=== PATIENT | female | born 2000 | race Two or more races ===

== ENCOUNTER 2022-05-28 17:38 | Observation (INO) | payer MEDICAID ==
[~2022-05-28] VITALS: Ht 152.4 cm; Wt 64.9 kg
[2022-05-28] MEDS ORDERED: LACTATED RINGER'S 1,000 ML IV ONE (18:15)
[2022-05-28] MEDS ORDERED: NIFEdipine 10 MG CAP PO ONE (18:15)
[2022-05-28] MEDS ORDERED: ceFAZolin 1GM/50ML 50 ML IV ONE (18:15)
[2022-05-28] MEDS ORDERED: TERBUTALINE SULFATE 1 MG/ML 1ML VIAL SC SCH (18:15)
[2022-05-28] MEDS ORDERED: ACETAMINOPHEN 325 MG TAB PO ONE (18:15)
[2022-05-28 19:04] LABS: Urine Bacteria FEW /hpf (None Seen); Urine Blood Negative /uL (Negative); Urine Specific Gravity 1.007 (1.001-1.035); Urine WBC 1 /hpf (0 - 5)
[2022-05-29] MEDS: ACETAMINOPHEN 325 MG TAB PO PRN ×3 (00:21→09:10)
[2022-05-29] MEDS ORDERED: LACTATED RINGER'S 1,000 ML IV SCH (01:15)
[2022-05-29] MEDS ORDERED: cefTRIAXone 1GM/50ML D5W 50 ML IV ONE (01:45)
[2022-05-29] MEDS ORDERED: SODIUM CHLORIDE 0.9% 1,000 ML IV SCH (01:45)
[2022-05-29] MEDS: ceFAZolin 1GM/50ML 50 ML IV SCH ×2 (02:51→11:15)
[2022-05-29 02:53] LABS: Basophils # (auto) 0 10 ^3/uL (0-0.2); Basophils % (auto) 0.2 % (0.0-2.0); Eosinophils # (auto) 0 10 ^3/uL (0-0.8); Eosinophils % (auto) 0.1 % (0.0-7.0); Hematocrit 30.7 % (36.0-46.0); Hemoglobin 10.4 g/dL (12.2-16.2); Lymphocytes # (auto) 0.4 10 ^3/uL (0.4-5.4); Mean Corpuscular Hemoglobin 30.5 pg (28.0-32.0); Mean Corpuscular Volume 89.5 fL (80.0-100.0); Monocytes # (auto) 0.5 10 ^3/uL (0-1.3); Monocytes % (auto) 6.7 % (0.0-12.0); Neutrophils # (auto) 5.9 10 ^3/uL (1.6-8.6); Red Blood Cells 3.42 10^6/uL (4.0-5.20); Red Cell Distribution Width 12.5 % (11.8-14.3); White Blood Cell 6.8 10^3/uL (4.4-10.8)
[2022-05-29 03:00] LABS: INR 0.94 (0.9-1.15); Partial Thromboplastin Time 34.5 sec (24.6-33.4)
[2022-05-29 03:04] LABS: Albumin 2.5 g/dL (3.4-5.0); BUN/Creatinine Ratio 11.4; Calcium 8.5 mg/dL (8.5-10.1); Potassium 3.3 mmol/L (3.5-5.1)
[2022-05-29 03:07] LABS: Bilirubin, Total 0.6 mg/dL (0.2-1.0); Total Protein 6.1 g/dL (6.4-8.2)
[2022-05-29] MEDS ORDERED: AZITTAB PO ×2 (12:23)
[2022-05-29 22:35] LABS: Alcohol, Urine < 3.0 mg/dL (0-10); Amphetamine Screen, Urine NEGATIVE (NEGATIVE); Barbiturate Scree,Urine NEGATIVE (NEGATIVE); Benzodiazephine Screen, Urine NEGATIVE (NEGATIVE); Cannabinoid Screen, Urine NEGATIVE (NEGATIVE); Cocaine Screen, Urine NEGATIVE (NEGATIVE); Opiate Scree,Urine NEGATIVE (NEGATIVE); Phencyclidine Screen, Urine NEGATIVE (NEGATIVE)
== END 2022-05-29 13:02 | disposition home or self-care (01) ==
LOC: LDRP 17:38
PROVIDERS: ADMIT Obstetrics & Gynecology; ATTEND Obstetrics & Gynecology
DX: O98.512 Other viral diseases complicating pregnancy, second trimester (principal); Z20.822 Contact with and (suspected) exposure to COVID-19; B34.9 Viral infection, unspecified; O26.892 Other specified pregnancy related conditions, second trimester; R50.9 Fever, unspecified; R00.0 Tachycardia, unspecified; O62.9 Abnormality of forces of labor, unspecified; Z3A.24 24 weeks gestation of pregnancy; Z79.899 Other long term (current) drug therapy
CPT/HCPCS: 36415; 59025; 76805; 80053; 80307; 81001; 81002; 85025; 85610; 85730; 87040; 87426; 87804; 94760; 96365; 96366; 96367; 96368; G0378; J0690; J0696; J7030; U0003; 96360; 96361

== ENCOUNTER 2022-06-01 12:15 | Observation (INO) | payer MEDICAID ==
[~2022-06-01 12:15] MED LIST: AZITTAB PO
[2022-06-01] MEDS ORDERED: PREN-96 PO ×2 (16:02)
== END 2022-06-01 16:19 | disposition home or self-care (01) ==
LOC: LDRP 12:15 → UNDOADMOB 12:15 → LDRP 14:54
PROVIDERS: ADMIT Obstetrics & Gynecology Obstetrics; ATTEND Obstetrics & Gynecology Obstetrics
DX: O60.02 Preterm labor without delivery, second trimester (principal); Z3A.25 25 weeks gestation of pregnancy
CPT/HCPCS: 59025; 81002; G0378

== ENCOUNTER 2022-06-17 09:23 | Observation (INO) | payer MEDICAID ==
[~2022-06-17] VITALS: Ht 152.4 cm; Wt 63.5 kg
[~2022-06-17 09:23] MED LIST changes: -AZITTAB PO; +NIFE10CA3 PO; +PREN-96 PO
[2022-06-17] MEDS ORDERED: TERBUTALINE SULFATE 1 MG/ML 1ML VIAL SC SCH (10:15)
[2022-06-17] MEDS ORDERED: NIFEdipine 10 MG CAP PO ONE (10:15)
== END 2022-06-17 11:03 | disposition home or self-care (01) ==
LOC: LDRP 09:23 → UNDOADMOB 09:23 → LDRP 09:27 → UNDODISOB 11:03
PROVIDERS: ADMIT Obstetrics & Gynecology; ATTEND Obstetrics & Gynecology
DX: O60.02 Preterm labor without delivery, second trimester (principal); Z3A.27 27 weeks gestation of pregnancy
CPT/HCPCS: 59025; 81002; 94760; 96372; G0378; J3105

== ENCOUNTER 2022-06-24 08:43 | Observation (INO) | payer MEDICAID ==
[~2022-06-24] VITALS: Ht 152.4 cm; Wt 68.0 kg
[2022-06-24] MEDS ORDERED: BETAMETHASONE ACET (30mg/5ml) 5ml Vial 6mg/ml IM ONE (09:15)
[2022-06-24] MEDS ORDERED: TERBUTALINE SULFATE 1 MG/ML 1ML VIAL SC ONE (09:19)
[2022-06-24] MEDS ORDERED: BETAMETHASONE ACET (30mg/5ml) 5ml Vial 6mg/ml ONE (09:19)
[2022-06-24] MEDS: TERBUTALINE SULFATE 1 MG/ML 1ML VIAL SC SCH ×2 (09:22→09:35)
== END 2022-06-24 10:10 | disposition home or self-care (01) ==
LOC: UNDOADMOB 08:43 → LDRP 08:43
PROVIDERS: ADMIT Obstetrics & Gynecology; ATTEND Obstetrics & Gynecology
DX: O60.03 Preterm labor without delivery, third trimester (principal); Z3A.28 28 weeks gestation of pregnancy; Z79.899 Other long term (current) drug therapy
CPT/HCPCS: 59025; 81002; 82948; 94760; 96372; G0378; J0702; J3105

== ENCOUNTER 2022-06-25 11:27 | Observation (INO) | payer MEDICAID ==
[~2022-06-25] VITALS: Ht 33 cm; Wt 0.5 kg
[2022-06-25] MEDS ORDERED: BETAMETHASONE ACET (30mg/5ml) 5ml Vial 6mg/ml IM ONE (11:45)
== END 2022-06-25 13:07 | disposition home or self-care (01) ==
LOC: LDRP 11:27 → UNDOADMOB 11:27 → LDRP 11:36 → UNDODISOB 13:07
PROVIDERS: ADMIT Obstetrics & Gynecology; ATTEND Obstetrics & Gynecology
DX: O60.03 Preterm labor without delivery, third trimester (principal); Z3A.28 28 weeks gestation of pregnancy
CPT/HCPCS: 59025; 81002; 94760; 96372; G0378; J0702

== ENCOUNTER 2022-07-07 10:26 | Observation (INO) | payer MEDICAID ==
[~2022-07-07] VITALS: Ht 60 cm; Wt 68.5 kg
[2022-07-07] MEDS ORDERED: TERBUTALINE SULFATE 1 MG/ML 1ML VIAL SC SCH (11:15)
== END 2022-07-07 11:56 | disposition home or self-care (01) ==
LOC: UNDOADMOB 10:26 → LDRP 10:26 → UNDODISOB 11:56
PROVIDERS: ADMIT Obstetrics & Gynecology; ATTEND Obstetrics & Gynecology
DX: O60.03 Preterm labor without delivery, third trimester (principal); Z3A.30 30 weeks gestation of pregnancy
CPT/HCPCS: 59025; 81002; 94760; 96372; G0378; J3105

== ENCOUNTER 2022-07-14 08:12 | Observation (INO) | payer MEDICAID ==
[~2022-07-14] VITALS: Ht 152.4 cm; Wt 69.4 kg
[2022-07-14] MEDS ORDERED: TERBUTALINE SULFATE 1 MG/ML 1ML VIAL SC SCH (11:45)
[2022-07-14] MEDS ORDERED: TERBUTALINE SULFATE 1 MG/ML 1ML VIAL SC ONE (11:54)
== END 2022-07-14 12:50 | disposition home or self-care (01) ==
LOC: LDRP 10:40 → UNDOADMOB 10:40 → LDRP 11:15
PROVIDERS: ADMIT Obstetrics & Gynecology; ATTEND Obstetrics & Gynecology
DX: O60.03 Preterm labor without delivery, third trimester (principal); O24.419 Gestational diabetes mellitus in pregnancy, unspecified control; Z3A.31 31 weeks gestation of pregnancy
CPT/HCPCS: 59025; 81002; 94760; 96372; G0378; J3105

== ENCOUNTER 2022-07-22 08:09 | Observation (INO) | payer MEDICAID ==
[~2022-07-22] VITALS: Ht 152.4 cm; Wt 61.2 kg
[2022-07-22] MEDS ORDERED: TERBUTALINE SULFATE 1 MG/ML 1ML VIAL SC SCH (09:30)
[2022-07-22] MEDS ORDERED: NIF10C PO (10:35)
== END 2022-07-22 11:39 | disposition home or self-care (01) ==
LOC: UNDOADMOB 08:50 → LDRP 08:50
PROVIDERS: ADMIT Obstetrics & Gynecology; ATTEND Obstetrics & Gynecology
DX: O60.03 Preterm labor without delivery, third trimester (principal); O62.9 Abnormality of forces of labor, unspecified; Z3A.32 32 weeks gestation of pregnancy
CPT/HCPCS: 59025; 81002; 93971; 94760; 96372; G0378; J3105

== ENCOUNTER 2022-07-28 07:43 | Observation (INO) | payer MEDICAID ==
[~2022-07-28 07:43] MED LIST changes: +NIF10C PO; -NIFE10CA3 PO
== END 2022-07-28 08:26 | disposition home or self-care (01) ==
LOC: LDRP 07:43 → UNDOADMOB 07:43 → LDRP 07:47 → UNDODISOB 08:26
PROVIDERS: ADMIT Obstetrics & Gynecology; ATTEND Obstetrics & Gynecology
DX: O60.03 Preterm labor without delivery, third trimester (principal); Z3A.33 33 weeks gestation of pregnancy
CPT/HCPCS: 59025; 81002; 94760; G0378

== ENCOUNTER 2022-08-04 09:33 | Observation (INO) | payer MEDICAID | END 2022-08-04 10:28 | disposition home or self-care (01) | LOC: LDRP 09:33 → UNDOADMOB 09:33 → LDRP 09:37 → UNDODISOB 10:28 | PROVIDERS: ADMIT Obstetrics & Gynecology; ATTEND Obstetrics & Gynecology | DX: O60.03 Preterm labor without delivery, third trimester (principal); Z3A.34 34 weeks gestation of pregnancy | CPT/HCPCS: 59025; 81002; 94760; G0378 ==

== ENCOUNTER 2022-08-12 08:02 | Observation (INO) | payer MEDICAID ==
[~2022-08-12] VITALS: Ht 154.9 cm; Wt 57.6 kg
== END 2022-08-12 08:58 | disposition home or self-care (01) ==
LOC: UNDOADMOB 08:02 → LDRP 08:02 → UNDODISOB 08:58
PROVIDERS: ADMIT Obstetrics & Gynecology; ATTEND Obstetrics & Gynecology
DX: O60.03 Preterm labor without delivery, third trimester (principal); Z3A.35 35 weeks gestation of pregnancy
CPT/HCPCS: 59025; 81002; G0378

== ENCOUNTER 2022-08-18 09:05 | Observation (INO) | payer MEDICAID ==
[2022-08-18 10:51] LABS: Basophils # (auto) 0 10 ^3/uL (0-0.2); Basophils % (auto) 0.7 % (0.0-2.0); Eosinophils # (auto) 0.1 10 ^3/uL (0-0.8); Eosinophils % (auto) 1.7 % (0.0-7.0); Hematocrit 32.7 % (36.0-46.0); Hemoglobin 10.7 g/dL (12.2-16.2); Lymphocytes # (auto) 1.6 10 ^3/uL (0.4-5.4); Lymphocytes % (auto) 27.1 % (10.0-50.0); Mean Corpuscular Hemoglobin 27.5 pg (28.0-32.0); Mean Corpuscular Hgb Conc. 32.7 g/dL (32.0-36.0); Monocytes # (auto) 0.4 10 ^3/uL (0-1.3); Neutrophils # (auto) 3.7 10 ^3/uL (1.6-8.6); Neutrophils % (auto) 63.5 % (37.0-80.0); Nucleated Red Blood Cells % 0.1 %; Red Blood Cells 3.89 10^6/uL (4.0-5.20); Red Cell Distribution Width 14.1 % (11.8-14.3); White Blood Cell 5.9 10^3/uL (4.4-10.8)
[2022-08-18 11:03] LABS: INR 0.87 (0.9-1.15); Partial Thromboplastin Time 28.9 sec (24.6-33.4)
[2022-08-18 11:04] LABS: Urine Bacteria FEW /hpf (None Seen); Urine Blood Negative /uL (Negative); Urine Mucus FEW (None Seen); Urine Specific Gravity 1.013 (1.001-1.035); Urine WBC 2 /hpf (0 - 5)
[2022-08-18 13:05] LABS: Albumin 2.4 g/dL (3.4-5.0); BUN/Creatinine Ratio 15.7; Calcium 9.5 mg/dL (8.5-10.1); Potassium 4.4 mmol/L (3.5-5.1)
[2022-08-18 13:08] LABS: Bilirubin, Total 0.4 mg/dL (0.2-1.0); Total Protein 6.9 g/dL (6.4-8.2)
[2022-08-18 17:00] LABS: Uric Acid 4.4 mg/dL (2.6-6.0)
== END 2022-08-18 13:37 | disposition home or self-care (01) ==
LOC: LDRP 09:57 → UNDOADMOB 09:57 → LDRP 09:59 → UNDODISOB 13:37
PROVIDERS: ADMIT Obstetrics & Gynecology; ATTEND Obstetrics & Gynecology
DX: O60.03 Preterm labor without delivery, third trimester (principal); O13.3 Gestational [pregnancy-induced] hypertension without significant proteinuria, third trimester; Z3A.36 36 weeks gestation of pregnancy
CPT/HCPCS: 36415; 59025; 76818; 80053; 81001; 81002; 82570; 84156; 84550; 85025; 85610; 85730; 94760; G0378

== ENCOUNTER 2022-08-20 08:12 | Observation (INO) | payer MEDICAID | END 2022-08-20 10:05 | disposition home or self-care (01) | LOC: UNDOADMOB 08:12 → LDRP 08:12 → UNDODISOB 10:05 | PROVIDERS: ADMIT Obstetrics & Gynecology; ATTEND Obstetrics & Gynecology | DX: O34.63 Maternal care for abnormality of vagina, third trimester (principal); N89.8 Other specified noninflammatory disorders of vagina; O12.03 Gestational edema, third trimester; Z3A.36 36 weeks gestation of pregnancy | CPT/HCPCS: 59025; 76818; 81002; G0378 ==

== ENCOUNTER 2022-08-24 08:44 | Observation (INO) | payer MEDICAID | END 2022-08-24 10:53 | disposition home or self-care (01) | LOC: LDRP 08:44 → UNDOADMOB 08:44 → LDRP 09:08 → UNDODISOB 10:53 | PROVIDERS: ADMIT Obstetrics & Gynecology; ATTEND Obstetrics & Gynecology | DX: O62.9 Abnormality of forces of labor, unspecified (principal); O36.8330 Maternal care for abnormalities of the fetal heart rate or rhythm, third trimester, not applicable or unspecified; O13.3 Gestational [pregnancy-induced] hypertension without significant proteinuria, third trimester; Z3A.37 37 weeks gestation of pregnancy; Z79.899 Other long term (current) drug therapy | CPT/HCPCS: 59025; 76818; 82948; 94760; G0378 ==

== ENCOUNTER 2022-08-27 08:18 | Observation (INO) | payer MEDICAID | END 2022-08-27 16:00 | disposition home or self-care (01) | LOC: LDRP 08:18 | PROVIDERS: ADMIT Obstetrics & Gynecology; ATTEND Obstetrics & Gynecology | DX: O13.3 Gestational [pregnancy-induced] hypertension without significant proteinuria, third trimester (principal); O36.8330 Maternal care for abnormalities of the fetal heart rate or rhythm, third trimester, not applicable or unspecified; O62.9 Abnormality of forces of labor, unspecified; Z3A.37 37 weeks gestation of pregnancy | CPT/HCPCS: 59025; 76818; G0378 ==

== ENCOUNTER 2022-08-28 08:35 | Observation (INO) | payer MEDICAID | END 2022-08-28 10:05 | disposition home or self-care (01) | LOC: LDRP 08:35 → UNDOADMOB 08:35 → LDRP 09:01 → UNDODISOB 10:05 | PROVIDERS: ADMIT Obstetrics & Gynecology; ATTEND Obstetrics & Gynecology | DX: O60.03 Preterm labor without delivery, third trimester (principal); O13.3 Gestational [pregnancy-induced] hypertension without significant proteinuria, third trimester; O62.9 Abnormality of forces of labor, unspecified; Z3A.37 37 weeks gestation of pregnancy | CPT/HCPCS: 59025; 81002; G0378 ==

== ENCOUNTER 2022-08-31 08:30 | Observation (INO) | payer MEDICAID ==
[~2022-08-31 08:30] MED LIST changes: -NIF10C PO
== END 2022-08-31 10:57 | disposition home or self-care (01) ==
LOC: LDRP 08:38 → UNDOADMOB 08:47 → UNDODISOB 10:57
PROVIDERS: ADMIT Obstetrics & Gynecology; ATTEND Obstetrics & Gynecology
DX: O13.3 Gestational [pregnancy-induced] hypertension without significant proteinuria, third trimester (principal); O62.9 Abnormality of forces of labor, unspecified; Z3A.38 38 weeks gestation of pregnancy
CPT/HCPCS: 59025; 76818; 81002; 94760; G0378

== ENCOUNTER 2022-09-03 08:05 | Observation (INO) | payer MEDICAID | END 2022-09-03 10:46 | disposition home or self-care (01) | LOC: UNDOADMOB 08:05 → LDRP 08:05 | PROVIDERS: ADMIT Obstetrics & Gynecology; ATTEND Obstetrics & Gynecology | DX: O60.03 Preterm labor without delivery, third trimester (principal); Z3A.38 38 weeks gestation of pregnancy | CPT/HCPCS: 59025; 76818; 81002; G0378 ==

== ENCOUNTER 2022-09-07 07:24 | Observation (INO) | payer MEDICAID ==
[2022-09-07 10:35] LABS: Basophils # (auto) 0.1 10 ^3/uL (0-0.2); Eosinophils # (auto) 0.2 10 ^3/uL (0-0.8); Eosinophils % (auto) 3.1 % (0.0-7.0); Hematocrit 33.2 % (36.0-46.0); Lymphocytes # (auto) 1.2 10 ^3/uL (0.4-5.4); Lymphocytes % (auto) 18.2 % (10.0-50.0); Mean Corpuscular Hemoglobin 27.5 pg (28.0-32.0); Mean Corpuscular Hgb Conc. 33.2 g/dL (32.0-36.0); Mean Corpuscular Volume 82.8 fL (80.0-100.0); Monocytes # (auto) 0.3 10 ^3/uL (0-1.3); Neutrophils # (auto) 4.8 10 ^3/uL (1.6-8.6); Neutrophils % (auto) 72.7 % (37.0-80.0); Red Blood Cells 4.01 10^6/uL (4.0-5.20); White Blood Cell 6.6 10^3/uL (4.4-10.8)
[2022-09-07 10:48] LABS: INR 0.86 (0.9-1.15); Partial Thromboplastin Time 31.1 sec (24.6-33.4)
[2022-09-07 11:17] LABS: Albumin 2.7 g/dL (3.4-5.0); Calcium 9.3 mg/dL (8.5-10.1); Potassium 4.4 mmol/L (3.5-5.1); Uric Acid 4.9 mg/dL (2.6-6.0)
[2022-09-07 11:20] LABS: BUN/Creatinine Ratio 18.5; Bilirubin, Total 0.4 mg/dL (0.2-1.0); Total Protein 7.2 g/dL (6.4-8.2)
[2022-09-07 11:34] LABS: Protein, Urine 15.3 mg/dL (0.0-11.9)
[2022-09-07 12:38] LABS: Urine Blood Negative /uL (Negative); Urine Specific Gravity 1.005 (1.001-1.035)
== END 2022-09-07 10:40 | disposition home or self-care (01) ==
LOC: UNDOADMOB 08:04 → LDRP 08:04
PROVIDERS: ADMIT Obstetrics & Gynecology; ATTEND Obstetrics & Gynecology
DX: O13.3 Gestational [pregnancy-induced] hypertension without significant proteinuria, third trimester (principal); Z3A.39 39 weeks gestation of pregnancy
CPT/HCPCS: 36415; 59025; 76818; 80053; 81002; 81003; 82570; 84156; 84550; 85025; 85610; 85730; G0378

== ENCOUNTER 2022-09-09 16:35 | Observation (INO) | payer MEDICAID ==
[~2022-09-09] VITALS: Ht 152.4 cm; Wt 73.5 kg
[2022-09-09] MEDS ORDERED: ACETAMINOPHEN 325 MG TAB PO ONE (17:00)
[2022-09-09] MEDS ORDERED: LACTATED RINGER'S 1,000 ML IV ONE (17:15)
[2022-09-09] MEDS ORDERED: diphenhdrAMINE HCL 50 MG/1 ML VL IV ONE (17:15)
[2022-09-09 17:37] LABS: Basophils # (auto) 0 10 ^3/uL (0-0.2); Basophils % (auto) 0.2 % (0.0-2.0); Eosinophils # (auto) 0.2 10 ^3/uL (0-0.8); Hematocrit 30.8 % (36.0-46.0); Hemoglobin 10.4 g/dL (12.2-16.2); Lymphocytes # (auto) 0.7 10 ^3/uL (0.4-5.4); Lymphocytes % (auto) 10.8 % (10.0-50.0); Mean Corpuscular Hemoglobin 27.6 pg (28.0-32.0); Mean Corpuscular Hgb Conc. 33.8 g/dL (32.0-36.0); Mean Corpuscular Volume 81.6 fL (80.0-100.0); Monocytes # (auto) 0.3 10 ^3/uL (0-1.3); Monocytes % (auto) 4.8 % (0.0-12.0); Neutrophils # (auto) 4.8 10 ^3/uL (1.6-8.6); Neutrophils % (auto) 80.2 % (37.0-80.0); Nucleated Red Blood Cells % 0.1 %; Red Blood Cells 3.77 10^6/uL (4.0-5.20)
[2022-09-09 17:53] LABS: Albumin 2.6 g/dL (3.4-5.0); Calcium 8.6 mg/dL (8.5-10.1); Potassium 3.7 mmol/L (3.5-5.1)
[2022-09-09 17:56] LABS: BUN/Creatinine Ratio 20.8; Bilirubin, Total 0.4 mg/dL (0.2-1.0); Total Protein 6.4 g/dL (6.4-8.2)
[2022-09-09] MEDS ORDERED: D5W/LACTATED RINGERS 1,000 ML IV ONE (19:15)
[2022-09-09] MEDS ORDERED: CEPH-510 PO ×2 (19:43)
[2022-09-09] MEDS ORDERED: HYD1TP TOP ×2 (19:44)
[2022-09-10] MEDS ORDERED: IBUP800T27 PO (11:44)
[2022-09-10] MEDS ORDERED: DOCU-94 PO (11:44)
[2022-09-10] MEDS ORDERED: FER325T PO (11:44)
[2022-09-10] MEDS ORDERED: HYDR-4902 PO (11:44)
== END 2022-09-09 20:30 | disposition home or self-care (01) ==
LOC: UNDOADMOB 16:35 → LDRP 16:35 → UNDODISOB 20:30
PROVIDERS: ADMIT Obstetrics & Gynecology; ATTEND Obstetrics & Gynecology
DX: O26.893 Other specified pregnancy related conditions, third trimester (principal); R50.9 Fever, unspecified; R21 Rash and other nonspecific skin eruption; Z3A.39 39 weeks gestation of pregnancy
CPT/HCPCS: 36415; 59025; 76818; 80053; 81002; 85025; 87086; 94760; 96361; 96374; G0378; J1200; 96360

== ENCOUNTER 2022-09-10 08:18 | Inpatient (IN) | payer MEDICAID ==
[2022-09-10] VITALS (14 sets, daily range): BP systolic 104–127; BP diastolic 53–65
[~2022-09-10] VITALS: Ht 154.9 cm; Wt 77.1 kg
[~2022-09-10 08:18] MED LIST changes: +CEPH-510 PO; +HYD1TP TOP
[2022-09-10] MEDS ORDERED: BUTORPHANOL TARTRATE 2 MG/1 ML VIAL IV PRN ×2 (08:30)
[2022-09-10] MEDS ORDERED: LIDOCAINE 2%HCL (LOCAL ANESTH.) INJ 20ML MDV IJ PRN (08:30)
[2022-09-10] MEDS ORDERED: DERMOPLAST 60ML BOTTLE TOP PRN (08:30)
[2022-09-10] MEDS ORDERED: PHISODERM TOP SOLN 240ML BTL TOP PRN (08:30)
[2022-09-10] MEDS ORDERED: miSOPROStol 50 MCG per PRE-CUT 1/2 TAB PO PRN (08:30)
[2022-09-10] MEDS ORDERED: NALBUPHINE HCL 10 MG/1ml INJECTION IV PRN (08:30)
[2022-09-10] MEDS ORDERED: PROMETHAZINE HCL 25 MG/ML 1ML IV PRN (08:30)
[2022-09-10] MEDS ORDERED: WITCH HAZEL-GLYCERIN PAD TOP PRN (08:30)
[2022-09-10] MEDS ORDERED: PROMETHAZINE HCL 25 MG/ML 1ML IM PRN (08:30)
[2022-09-10] MEDS ORDERED: AMPICILLIN SOD 2GM INJ 2 GM in SODIUM CHL 0.9% 100 ML IV ONE (09:30)
[2022-09-10 09:40] LABS: Basophils # (auto) 0 10 ^3/uL (0-0.2); Basophils % (auto) 0.1 % (0.0-2.0); Eosinophils # (auto) 0.3 10 ^3/uL (0-0.8); Eosinophils % (auto) 6.2 % (0.0-7.0); Hematocrit 31.8 % (36.0-46.0); Hemoglobin 10.6 g/dL (12.2-16.2); Lymphocytes # (auto) 0.8 10 ^3/uL (0.4-5.4); Lymphocytes % (auto) 15.1 % (10.0-50.0); Mean Corpuscular Hemoglobin 27.2 pg (28.0-32.0); Mean Corpuscular Hgb Conc. 33.3 g/dL (32.0-36.0); Mean Corpuscular Volume 81.8 fL (80.0-100.0); Monocytes # (auto) 0.2 10 ^3/uL (0-1.3); Monocytes % (auto) 3.2 % (0.0-12.0); Neutrophils % (auto) 75.4 % (37.0-80.0); Nucleated Red Blood Cells % 0.1 %; Red Blood Cells 3.88 10^6/uL (4.0-5.20); Red Cell Distribution Width 14.9 % (11.8-14.3); White Blood Cell 5.4 10^3/uL (4.4-10.8)
[2022-09-10] MEDS ORDERED: GENTAMICIN PER PHARMACY 0 ML IV SCH (09:45)
[2022-09-10 09:49] LABS: Urine Bacteria NONE SEEN /hpf (None Seen); Urine Blood Negative /uL (Negative); Urine Mucus FEW (None Seen); Urine Specific Gravity 1.014 (1.001-1.035); Urine WBC 2 /hpf (0 - 5)
[2022-09-10 09:50] LABS: INR 1.01 (0.9-1.15)
[2022-09-10 10:27] LABS: Albumin 2.5 g/dL (3.4-5.0); BUN/Creatinine Ratio 13.3; Bilirubin, Total 0.5 mg/dL (0.2-1.0); Calcium 8.7 mg/dL (8.5-10.1); Total Protein 6.7 g/dL (6.4-8.2)
[2022-09-10 10:31] LABS: Amphetamine Screen, Urine NEGATIVE (NEGATIVE); Barbiturate Scree,Urine NEGATIVE (NEGATIVE); Benzodiazephine Screen, Urine NEGATIVE (NEGATIVE); Cannabinoid Screen, Urine NEGATIVE (NEGATIVE); Cocaine Screen, Urine NEGATIVE (NEGATIVE); Opiate Scree,Urine NEGATIVE (NEGATIVE); Phencyclidine Screen, Urine NEGATIVE (NEGATIVE)
[2022-09-10] MEDS: GENTAMICIN SULFATE 380 MG in D5W 5% 100 ML IV SCH (10:52)
[2022-09-10] MEDS ORDERED: fentaNYL CITRATE 100 MCG/2 ML VL ONE (11:00)
[2022-09-10] MEDS ORDERED: MORPHINE SULF PF 5 MG/10 ML VIAL ONE (11:00)
[2022-09-10] MEDS ORDERED: CARBOPROST TROMETHAMINE 250 MCG/1ML VIAL IM ONE (11:28)
[2022-09-10] MEDS ORDERED: FER325T PO (11:44)
[2022-09-10] MEDS ORDERED: DOCU-94 PO (11:44)
[2022-09-10] MEDS ORDERED: HYDR-4902 PO (11:44)
[2022-09-10] MEDS ORDERED: IBUP800T27 PO (11:44)
[2022-09-10] MEDS ORDERED: ONDANSETRON HCL 4 MG/2 ML VIAL IV PRN ×2 (11:45→12:30)
[2022-09-10] MEDS ORDERED: LACT. RINGERS/OXYTOCIN 20UNITS 1,000 ML IV ONE (11:45)
[2022-09-10] MEDS ORDERED: oxyTOCIN 10 UNIT/ML 10ML VIAL ONE (11:47)
[2022-09-10] MEDS ORDERED: DexAMETHasone SOD PHOS 10MG/1ML VIAL INJ ONE (11:47)
[2022-09-10] MEDS ORDERED: ONDANSETRON HCL 4 MG/2 ML VIAL ONE (11:47)
[2022-09-10] MEDS ORDERED: NALOXONE HCL 0.4 MG/ML VIAL IV PRN (12:30)
[2022-09-10] MEDS ORDERED: NALBUPHINE HCL 10 MG/1ml INJECTION IV ONE (12:30)
[2022-09-10] MEDS ORDERED: HYDROmorphone HCL 2 MG/ML VL/or syr IV PRN (12:30)
[2022-09-10] MEDS ORDERED: diphenhdrAMINE HCL 50 MG/1 ML VL IV PRN (12:30)
[2022-09-10 12:31] LABS: Basophils # (auto) 0 10 ^3/uL (0-0.2); Basophils % (auto) 0.3 % (0.0-2.0); Eosinophils # (auto) 0.3 10 ^3/uL (0-0.8); Eosinophils % (auto) 3.7 % (0.0-7.0); Hematocrit 34.1 % (36.0-46.0); Hemoglobin 11.2 g/dL (12.2-16.2); Lymphocytes # (auto) 1.3 10 ^3/uL (0.4-5.4); Lymphocytes % (auto) 16.8 % (10.0-50.0); Mean Corpuscular Hemoglobin 27.2 pg (28.0-32.0); Mean Corpuscular Hgb Conc. 32.9 g/dL (32.0-36.0); Mean Corpuscular Volume 82.7 fL (80.0-100.0); Monocytes # (auto) 0.1 10 ^3/uL (0-1.3); Monocytes % (auto) 1.8 % (0.0-12.0); Neutrophils # (auto) 5.8 10 ^3/uL (1.6-8.6); Neutrophils % (auto) 77.4 % (37.0-80.0); Nucleated Red Blood Cells % 0.2 %; Red Blood Cells 4.12 10^6/uL (4.0-5.20); Red Cell Distribution Width 15.1 % (11.8-14.3); White Blood Cell 7.5 10^3/uL (4.4-10.8)
[2022-09-10] MEDS ORDERED: ACETAMINOPHEN IV 1000 MG/100ML (10MG/ML) IV PRN (13:45)
[2022-09-10] MEDS: LACTATED RINGER'S 1,000 ML IV SCH ×2 (15:22→16:30)
[2022-09-10] MEDS: AMPICILLIN SOD 2GM INJ 2 GM in SODIUM CHL 0.9% 100 ML IV SCH ×2 (16:53→18:00)
[2022-09-11] VITALS (13 sets, daily range): BP systolic 94–123; BP diastolic 51–81
[2022-09-11] MEDS: LACTATED RINGER'S 1,000 ML IV SCH ×3 (00:30→16:25)
[2022-09-11] MEDS: AMPICILLIN SOD 2GM INJ 2 GM in SODIUM CHL 0.9% 100 ML IV SCH ×5 (01:55→23:40)
[2022-09-11] MEDS ORDERED: BISACODYL 10 MG RECT SUPP PR PRN (06:45)
[2022-09-11 07:26] LABS: Basophils # (auto) 0 10 ^3/uL (0-0.2); Basophils % (auto) 0.2 % (0.0-2.0); Eosinophils # (auto) 0.1 10 ^3/uL (0-0.8); Eosinophils % (auto) 1.3 % (0.0-7.0); Hematocrit 27.7 % (36.0-46.0); Hemoglobin 9.3 g/dL (12.2-16.2); Lymphocytes # (auto) 1.8 10 ^3/uL (0.4-5.4); Mean Corpuscular Hemoglobin 27.5 pg (28.0-32.0); Mean Corpuscular Hgb Conc. 33.7 g/dL (32.0-36.0); Mean Corpuscular Volume 81.6 fL (80.0-100.0); Monocytes # (auto) 0.5 10 ^3/uL (0-1.3); Monocytes % (auto) 4.5 % (0.0-12.0); Neutrophils # (auto) 7.7 10 ^3/uL (1.6-8.6); Nucleated Red Blood Cells % 0.1 %; Red Cell Distribution Width 15.1 % (11.8-14.3); White Blood Cell 10.1 10^3/uL (4.4-10.8)
[2022-09-11 08:07] LABS: RPR Non Reactive (Non Reactive)
[2022-09-11] MEDS: IBUPROFEN 800 MG TAB PO PRN ×2 (09:08→18:20)
[2022-09-11] MEDS: HYDROcodone-ACET 5/325MG TAB PO PRN ×3 (09:09→22:45)
[2022-09-11] MEDS: DOCUSATE SOD 100 MG CAP PO SCH ×2 (09:11→22:37)
[2022-09-11] MEDS ORDERED: DOCUSATE CALCIUM 240 MG CAP PO PRN (10:00)
[2022-09-11] MEDS: GENTAMICIN SULFATE 380 MG in D5W 5% 100 ML IV SCH (10:57)
[2022-09-11] MEDS: SIMETHICONE 80 MG CHEWABLE TABLET PO SCH ×3 (12:31→22:37)
[2022-09-12] MEDS: LACTATED RINGER'S 1,000 ML IV SCH ×2 (00:30→08:30)
[2022-09-12] MEDS: IBUPROFEN 800 MG TAB PO PRN ×2 (02:57→19:21)
[2022-09-12 03:08] VITALS: BP 90/60
[2022-09-12] MEDS: AMPICILLIN SOD 2GM INJ 2 GM in SODIUM CHL 0.9% 100 ML IV SCH ×4 (05:50→23:30)
[2022-09-12] MEDS: SIMETHICONE 80 MG CHEWABLE TABLET PO SCH ×4 (05:51→22:52)
[2022-09-12 07:30] VITALS: BP 119/70
[2022-09-12] MEDS: HYDROcodone-ACET 5/325MG TAB PO PRN ×2 (07:52→15:27)
[2022-09-12] MEDS: DOCUSATE SOD 100 MG CAP PO SCH ×2 (10:00→22:53)
[2022-09-12 11:30] VITALS: BP 123/65
[2022-09-12] MEDS: GENTAMICIN SULFATE 380 MG in D5W 5% 100 ML IV SCH (13:45)
[2022-09-12 15:30] VITALS: BP 126/75
[2022-09-12 19:30] VITALS: BP 114/66
[2022-09-12 23:30] VITALS: BP 119/59
[2022-09-13 03:12] VITALS: BP 107/63
[2022-09-13] MEDS: HYDROcodone-ACET 5/325MG TAB PO PRN ×2 (04:16→10:21)
[2022-09-13] MEDS: AMPICILLIN SOD 2GM INJ 2 GM in SODIUM CHL 0.9% 100 ML IV SCH (05:30)
[2022-09-13] MEDS: SIMETHICONE 80 MG CHEWABLE TABLET PO SCH (05:30)
[2022-09-13 07:00] VITALS: BP 114/57
[2022-09-13 11:00] VITALS: BP 118/70
== END 2022-09-13 13:20 | disposition home or self-care (01) | DRG 540 ==
LOC: LDRP 08:18
PROVIDERS: ADMIT Obstetrics & Gynecology; ATTEND Obstetrics & Gynecology
PROC: 10D00Z1 Extraction of Products of Conception, Low, Open Approach (ICD-10-PCS; principal; 2022-09-10 11:02)
DX: O76 Abnormality in fetal heart rate and rhythm complicating labor and delivery (principal); A41.9 Sepsis, unspecified organism; O75.3 Other infection during labor; Z37.0 Single live birth; Z3A.39 39 weeks gestation of pregnancy; Z20.822 Contact with and (suspected) exposure to COVID-19
CPT/HCPCS: 36415; 59025; 76818; 80053; 80170; 80307; 81001; 81002; 82570; 83605; 84156; 84550; 85025; 85610; 85730; 86592; 86850; 86900; 86901; 87040; 87086; 87426; 94760; 94762; 96360; 96361; 96365; 96366; G0378; J0131; J1100; J2405; J2590; J7060